=== PATIENT | male | born 1930 | race Caucasian/White ===

== ENCOUNTER 2020-02-25 16:39 | Inpatient (IN) | payer MEDICARE ==
[~2020-02-25] VITALS: Ht 180.3 cm; Wt 80.1 kg
[2020-02-25] MEDS ORDERED: ASPIRIN CHEWABLE 81 MG TABLET. PO ONE (16:45)
--- NOTE | 2020-02-25 16:45 | PHYS DOC ---
Past History Past Medical History: CAD, High Cholesterol, Hyperthyroid Adult General Chief Complaint Chief Complaint: SHORTNESS OF BREATH HPI HPI Patient is a 89-year-old male who presents for shortness of breath. Patient reports this is an acute on chronic issue. Cites worsening dyspnea for past 3 months. Rest makes better, physical activity and exertion and lying flat make worse. Patient denies any pain but reports feelings of inability to take a deep breath. Timing of symptoms has been constant and worsening since onset. Has long history of coronary artery disease, has had x2 stents placed last in 1994. He has been on appropriate medical therapy since taking antihypertensives, 81 mg aspirin daily, and statin daily. Denies any fever, falls, COVID-19 patient con tact, chest pain, ripping or tearing sensation in chest, hemoptysis, abdominal pain, nausea, changes in bladder or bowel function, or recent long distance travel. He is unsure if he has gained any weight since onset 3 months ago, reports trace bilateral edema that he feels is unchanged. Review of Systems Review of Systems Fourteen body systems of review of systems have been reviewed. See HPI for pertinent positives and negative responses, other purvis all other systems are ne gative, non-pertinent or non-contributory Current Medications Current Medications Current Medications Medications (Trade) Dose Ordered Sig/Zenon Start Time Stop Time Status Last Admin Dose Admin Aspirin (Aspirin Chewable) 162 mg 1X ONCE 02/25/20 16:45 02/25/20 16:46 UNV Physical Exam Physical Exam Constitutional: Well developed, well nourished, moderate distress HENT: Normocephalic, atraumatic, bilateral external ears normal, oropharynx moist, no oral exudates, nose normal. Eyes: PERRLA, EOMI, conjunctiva normal, no discharge. Neck: Normal range of motion, no tenderness, supple, no stridor. Cardiovascular: Heart rate regular, sinus rhythm, no murmurs rubs or gallops Lungs & Thorax: Bilateral breath sounds present with diffuse crackles. Rales present in bilateral bases. Moderate respiratory distress, accessory muscle use and neck and upper abdomen noted Abdomen: Bowel sounds normal, soft, no tenderness, no masses, no pulsatile masses. Nonsurgical abdomen, no peritoneal signs Skin: Warm, dry, no erythema, no rash. Back: No tenderness, no CVA tenderness. Extremities: No tenderness, no cyanosis, no clubbing, ROM intact, 1+ pitting edema bilateral lower extremities, left lower extremity approximately 2 cm greater in diameter than right lower extremity, negative Homans' sign bilaterally Neurologic: Alert and oriented X 3, grossly normal motor & sensory function, no focal deficits noted. Psychologic: Affect normal, judgement normal, anxious mood Current Patient Data Vital Signs Vital Signs Date Time Temp Pulse Resp B/P (MAP) Pulse Ox O2 Delivery O2 Flow Rate FiO2 02/25/20 17:39 97.4 78 28 112/72 (85) Room Air Lab Results Laboratory Tests Test 02/25/20 17:00 White Blood Count 8.2 x10^3/uL (4.0-11.0) Red Blood Count 3.69 x10^6/uL (4.30-5.70) Hemoglobin 12.0 g/dL (13.0-17.5) Hematocrit 37.2 % (39.0-53.0) Mean Corpuscular Volume 101 fL (79-100) Mean Corpuscular Hemoglobin 32 pg (25-35) Mean Corpuscular Hemoglobin Concent 32 g/dL (31-37) Red Cell Distribution Width 16.9 % (11.5-14.5) Platelet Count 249 x10^3/uL (140-400) Neutrophils (%) (Auto) 75 % (31-73) Lymphocytes (%) (Auto) 15 % (24-48) Monocytes (%) (Auto) 10 % (0-9) Eosinophils (%) (Auto) 1 % (0-3) Basophils (%) (Auto) 0 % (0-3) Neutrophils # (Auto) 6.1 x10^3uL (1.8-7.7) Lymphocytes # (Auto) 1.2 x10^3/uL (1.0-4.8) Monocytes # (Auto) 0.8 x10^3/uL (0.0-1.1) Eosinophils # (Auto) 0.0 x10^3/uL (0.0-0.7) Basophils # (Auto) 0.0 x10^3/uL (0.0-0.2) Prothrombin Time 11.6 SEC (9.4-11.4) Prothromb Time International Ratio 1.1 (0.9-1.1) Activated Partial Thromboplast Time 24 SEC (23-33) Sodium Level 127 mmol/L (136-145) Potassium Level 4.6 mmol/L (3.5-5.1) Chloride Level 93 mmol/L (98-107) Carbon Dioxide Level 20 mmol/L (21-32) Anion Gap 14 (6-14) Blood Urea Nitrogen 52 mg/dL (8-26) Creatinine 2.3 mg/dL (0.7-1.3) Estimated GFR (Cockcroft-Gault) 27.0 BUN/Creatinine Ratio 23 (6-20) Glucose Level 137 mg/dL (70-99) Lactic Acid Level 4.5 mmol/L (0.4-2.0) Calcium Level 9.2 mg/dL (8.5-10.1) Magnesium Level 2.0 mg/dL (1.8-2.4) Total Bilirubin 0.3 mg/dL (0.2-1.0) Aspartate Amino Transf (AST/SGOT) 91 U/L (15-37) Alanine Aminotransferase (ALT/SGPT) 41 U/L (16-63) Alkaline Phosphatase 115 U/L (46-116) Creatine Kinase 229 U/L (39-308) Troponin I Quantitative 0.066 ng/mL (0-0.055) WN-Fji-Z-Type Natriuretic Peptide 39423 pg/mL (0-449) Total Protein 7.5 g/dL (6.4-8.2) Albumin 3.2 g/dL (3.4-5.0) Albumin/Globulin Ratio 0.7 (1.0-1.7) EKG EKG EKG ordered and interpreted by myself at 1645 hrs. as sinus rhythm at 99 bpm, prolonged AL at 220, prolonged QRS at 124, prolonged QTC at 483, left axis deviation, left bundle branch block with PVCs present, negative Sgarbossa, no STEMI Radiology/Procedures Radiology/Procedures PROCEDURE: PORTABLE CHEST 1V PORTABLE CHEST 1V Clinical History: Reason: shob / Spl. Instructions: / History: Technique: AP view of the chest was obtained at 02/25/2020 4:43 PM. Comparison: None. Findings: The cardiomediastinal silhouette is normal. The pulmonary vessels are slightly cephalized. There is increased reticular opacities of the lungs. There is patchy opacity in the left lung base and is blunting of costophrenic angles. There is an old massive rotator cuff tear on the right. Impression: Mild pleural effusions and interstitial infiltrates could be secondary to CHF or atypical pneumonia. Electronically signed by: Ezequiel Burgess III, MD (02/25/2020 5:27 PM) [facility] Heart Score HEART Score for Chest Pain: HEART Score for Chest Pain Response (Comments) Value History Moderately Suspicious 1 ECG Nonspecific Repolarizatio 1 Age > 65 2 Risk Factors >3 Risk Factors or Hx CAD 2 Troponin < Normal Limit 0 Total 6 Risk Factors: Risk Factors: DM, Current or recent (<one month) smoker, HTN, HLP, family history of CAD, obesity. Risk Scores: Risk Factors: DM, Current or recent (<one month) smoker, HTN, HLP, family history of CAD, obesity. Course & Med Decision Making Course & Med Decision Making Airway patent, in obvious respiratory distress on arrival, IV access obtained and subsequent vitals remarkable for increased work of breathing/tachypneic with RR ~40 History and comprehensive physical exam obtained, subsequent diagnostic work-up ordered. Pertinent Labs and Imaging studies reviewed. (See chart for details). On-call fat pressroom worker at contacted and initial EKG discussed given concern of potential third-degree heart block on monitor, they confirmed patient's EKG was nonconcerning for emergent management at this time Patient presentation most consistent with acute fluid overload, I suspect this is from CHF given gradual increase in dyspnea for past 3 months and absence of any recent sick contacts and/or any constitutional symptoms Patient placed in upright position to support breathing, 120 mg Solu-Medrol and a total of 120 mg Lasix administered with moderate relief in symptomology. BiPAP at bedside but never required as patient saturations maintained greater than 90% on room air, tachypnea improved Nonetheless, patient stabilized but remains in guarded condition. He definitely requires admission into ICU setting. I called Dr. Echeverria, hospitalist at who accepted patient under his care for continued diuresis in ICU setting I updated patient on plan of care and he was amenable. I disclosed all laboratory findings such as elevated creatinine and troponin, I disclosed if invasive indication was eventually required we would transfer him out, he was amenable to this I cannot exclude PE at this time given acute decompensation in past 24 hours. Few risk factors, but physical exam findings of left lower extremity circumference greater than right and overt fluid overload is concerning. D- dimer grossly positive, will pursue VQ scan Patient with full capacity confirmed he is full code. All questions and concerns addressed prior to ER transport to [facility] ICU for continued medical management Critical Care Time This patient required critical care. Due to the fact that the patient required a significant amount of one on one physician - patient contact time, ordering and review of studies, arranging urgent treatment with development of a management plan, evaluation of patients response to treatment with frequent reassessments, and discussions with other providers this patient required critical care time in excess of 30 minutes. Critical care time was indicated due to the inherent instability and/or potential for instability in this patient. The critical care time that is allocated to this patient is above and beyond any time spent on any other billable procedures performed on this patient. Dragon Disclaimer Dragon Disclaimer This electronic medical record was generated, in whole or in part, using a voice recognition dictation system. PERC Rule for PE PERC Rule for PE Response (Comments) Value Age > 50: Yes 1 HR > 100: No 0 Sa02 on room air <95%: No 0 Unilateral leg swelling: Yes 1 Hemoptysis: No 0 Recent surgery or trauma: No 0 Prior PE or DVT: No 0 Hormone use: No 0 Total 2 Departure Departure: Impression: Primary Impression: Acute exacerbation of CHF (congestive heart failure) Additional Impressions: Respiratory distress CAD (coronary artery disease) HTN (hypertension) HLD (hyperlipidemia) Disposition: 09 ADMITTED INPT THIS HOSP ([facility]) Admitting Physician: Kilo Echeverria Condition: GUARDED Referrals: GEN SAGE MD (PCP) Problem Qualifiers MERY OLEARY DO Feb 25, 2020 16:45
--- NOTE | 2020-02-25 16:59 | EKG ---
[address] [address] Test Date: 2020-02-25 Test Time: 16:45:06 Pat Name: NIRALI BELTRE Department: Room: Gender: M Dedenter: NIK : 1930 Requested By: MERY OLEARY Order Number: [id number] Reading MD: Price Carnes Measurements Intervals [place] Rate: 99 P: 19 DC: 220 QRS: 221 QRSD: 124 T: 35 QT: 372 QTc: 483 Interpretive Statements SINUS RHYTHM PROLONGED DC INTERVAL VENTRICULAR BIGEMINY LEFT BUNDLE BRANCH BLOCK Electronically Signed On 03-01-2020 11:34:59 [employer]POSAL [employer]ENT by Price Carnes
[2020-02-25] MEDS ORDERED: FUROSEMIDE 40 MG/4 ML VIAL IVP ONE ×2 (17:15→18:15)
[2020-02-25] MEDS ORDERED: methylPREDNISolone SOD SUCC PF 125 MG/2 ML VIAL. IV ONE (17:15)
[2020-02-25] MEDS ORDERED: FUROSEMIDE 40 MG/4 ML VIAL ONE (17:27)
[2020-02-25] MEDS ORDERED: methylPREDNISolone SOD SUCC PF 125 MG/2 ML VIAL. ONE (17:27)
--- NOTE | 2020-02-25 17:30 | RAD ---
PORTABLE CHEST 1V Clinical History: Reason: shob / Spl. Instructions: / History: Technique: AP view of the chest was obtained at 02/25/2020 4:43 PM. Comparison: None. Findings: The cardiomediastinal silhouette is normal. The pulmonary vessels are slightly cephalized. There is increased reticular opacities of the lungs. There is patchy opacity in the left lung base and is blunting of costophrenic angles. There is an old massive rotator cuff tear on the right. Impression: Mild pleural effusions and interstitial infiltrates could be secondary to CHF or atypical pneumonia. Electronically signed by: Ezequiel Burgess III, MD (02/25/2020 5:27 PM) [facility]
[2020-02-25 17:45] LABS: BASO % 0 % (0-3); EOS % 1 % (0-3); HEMATOCRIT 37.2 % (39.0-53.0); LYMPH # 1.2 x10^3/uL (1.0-4.8); LYMPH % 15 % (24-48); MEAN CORPUSCULAR HEMOGLOBIN 32 pg (25-35); MEAN CORPUSCULAR HGB CONC 32 g/dL (31-37); MEAN CORPUSCULAR VOLUME 101 fL (79-100); MONO # 0.8 x10^3/uL (0.0-1.1); MONO % 10 % (0-9); NEUT # 6.1 x10^3uL (1.8-7.7); NEUT % 75 % (31-73); PLATELET COUNT 249 x10^3/uL (140-400); RED BLOOD COUNT 3.69 x10^6/uL (4.30-5.70); RED CELL DISTRIBUTION WIDTH 16.9 % (11.5-14.5); WHITE BLOOD COUNT 8.2 x10^3/uL (4.0-11.0)
[2020-02-25 17:46] LABS: CALCIUM 9.2 mg/dL (8.5-10.1); CREATININE 2.3 mg/dL (0.7-1.3); POTASSIUM 4.6 mmol/L (3.5-5.1)
[2020-02-25 18:21] LABS: ALBUMIN 3.2 g/dL (3.4-5.0); ALBUMIN/GLOBULIN RATIO 0.7 (1.0-1.7); TOTAL BILIRUBIN 0.3 mg/dL (0.2-1.0); TOTAL PROTEIN 7.5 g/dL (6.4-8.2)
[2020-02-25 19:46] VITALS: BP 103/66
--- NOTE | 2020-02-25 19:46 | NUR ---
Admission Note: Pt transported from ED to ICU room 5, pt moved from cart to bed w/3 person assist, pt put on monitor showing VSS (pt requires 3 liters of oxygen at this time to maintain sats >92%), pt's primary care physician is Dr. Crespo (called Dr. Echeverria and Dr. Crespo to advise, system and orders corrected), home medications entered (need to be ordered, Dr. Crespo aware), pt voiding clear yellow urine via urinal w/o difficulty, pt states he already is feeling better than when he arrived. Repeat troponin and lactic to be drawn. Addendum: 02/25/20 at 2123 by KELLI KULKARNI RN Pt states he wishes to be a DNR, will have dayshift discuss w/Dr. Crespo in am.
[2020-02-25 20:00] VITALS: BP 105/70
[2020-02-25] MEDS ORDERED: GLUC-46 PO (20:03)
[2020-02-25] MEDS ORDERED: MECO10005 PO (20:03)
[2020-02-25] MEDS ORDERED: ASPI-630 PO (20:03)
[2020-02-25] MEDS ORDERED: CALC-495 PO (20:03)
[2020-02-25] MEDS ORDERED: EZET10TA20 PO (20:03)
[2020-02-25] MEDS ORDERED: UBID100T5 PO (20:03)
[2020-02-25] MEDS ORDERED: ATOR20TA58 PO (20:03)
[2020-02-25] MEDS ORDERED: VIT1TABL32 PO (20:03)
[2020-02-25] MEDS ORDERED: VITA1TAB19 PO (20:03)
--- NOTE | 2020-02-25 20:37 | RAD ---
Ventilation perfusion exam History:Dyspnea Comparison: None Technique: Perfusion images only. Perfusion images were acquired after the patient was injected with 5.5 mCi of technetium 99m MAA. FINDINGS: There is moderate heterogeneity of radiotracer on perfusion images. Impression: There is intermediate probability for pulmonary embolic disease. Electronically signed by: Arnulfo Castro MD (02/25/2020 8:34 PM) [facility]
[2020-02-25 21:00] VITALS: BP 102/72
[2020-02-25 22:00] VITALS: BP 108/75
[2020-02-25 23:00] VITALS: BP 114/85
[2020-02-25 23:59] VITALS: BP 118/87
[2020-02-26] VITALS (23 sets, daily range): BP systolic 79–103; BP diastolic 42–78
--- NOTE | 2020-02-26 05:39 | NUR ---
Cardiology consult called to answering service.
--- NOTE | 2020-02-26 06:09 | NUR ---
Shift Note: Pt is a/o x4, VSS (pt requires 2 liters oxygen to maintain sats >92%), pt voiding clear yellow urine, bilateral LE weakness noted (advised pt he is a fall risk and to call for assistance (pt agreed), called Dr. Crespo this am to advise of pulmonary perfusion study results (orders received for lovenox) also notified him the pt wishes to be a DNR (order entered), home medications entered (need to be reconciled).
--- NOTE | 2020-02-26 08:37 | NUR ---
IP: patient PUI for COVID-19, requires contact and airborne precautions.
[2020-02-26] MEDS: ENOXAPARIN ** NOTE DOSE ** SYRINGE SQ SCH (10:57)
--- NOTE | 2020-02-26 11:00 | NUR ---
Zak initiated transfer to [facility], ([place]) for cardiology and pt regular traveling electrician Dr Olga Romero. [facility] will not have a bed for patient until possibly Saturday. [address] Romero office spoke with Dr Suraj Ugalde, RN. Juan will speak with Dr. Chan (county coroner) to explore other possible options. Called Natalie to inform her [facility] bed situation, and that nurse is awaiting a call back from Dr Chan. 1515 Natalie called and wanted to check for a bed at . Spoke with Zak, he will call transfer center. 1600 Dr Chan returned call, wants this nurse to call transfer center and check on beds at either [facility] south or east. Suggested starting pt on low dose Dobutamine and give another dose of lasix. This nurse called transfer center and confirmed pt on waiting list, and there is zero beds at either south or east. [address] Altman to discuss Dr Chan suggestions.
--- NOTE | 2020-02-26 13:29 | HP ---
ADMIT DATE: 02/25/2020 HISTORY OF PRESENT ILLNESS: This is an 89-year-old male who has a long history of multiple cardiac problems, who came in with shortness of breath over the last several weeks. He has been seen by his retort fireman, Dr. Olga Romero at [facility] and had been planning on a heart catheterization in about 4-5 days. The patient denies any chest pain per se and increased dyspnea with just minimal exertion and marked orthopnea. The patient came in through the Emergency Room. He was found to be in congestive heart failure. The patient was admitted for further evaluation and treatment of such and possible transfer down to [facility] on the [place] with his retort fireman, Dr. Romero, but in the meantime, the patient will be seen by Cardiology here if not transferred before. The patient denies any fever, chills, loss of taste, any contact with anybody with COVID-19, just basically lives with his . 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 PAST SURGICAL HISTORY: Surgeries include that of appendectomy, arthroplasty, total knee, right, colonoscopy in 2015, coronary angioplasty with stent placement x 2, RCA, on 10/04/1994 at [facility], eye surgery for retinal detachment, repair of knee surgery, revision of total knee replacement and all components, revision of total knee arthroplasty, all components by Dr. Arndt, total knee, bilateral, ultrasound-guided needle aspiration. MEDICATIONS: Include Tylenol, aspirin 81, Lipitor 20, calcium carbonate, coenzyme Q10, B12, Zetia, glucosamine, omega-3. FAMILY HISTORY: Father with heart attack and a sister's son and brother, basically unremarkable. Mother had a brain aneurysm and at 80. SOCIAL HISTORY: The patient is a former smoker, had a [id number]-zzbd history, but has quit more than 20 years ago. No chewing tobacco. Alcohol, very few if any, 4-5 per week. Otherwise unremarkable. ALLERGIES: No known drug allergies. REVIEW OF SYSTEMS: As noted, just increased shortness of breath, dyspnea with marked orthopnea, no chest pain, no nausea, vomiting, melena, hematochezia or hematemesis. No headaches, visual changes, blurred vision, double vision. No neurological deficits noted. No problem with bowels or bladder at this time. PHYSICAL EXAMINATION: GENERAL: This is a very pleasant white gentleman, looking stated age, looking fairly ill. VITAL SIGNS: Blood pressure approximately 85/58, respiratory rate 22, pulse 95, afebrile. He is on 2 liters at 95%. HEENT: The patient's head was atraumatic, normocephalic. Eyes: PERRLA without jaundice. Mouth and throat were normal. NECK: Supple. LUNGS: Show rhonchi and rales bilaterally. CARDIOVASCULAR: Regular sinus rhythm, S1, S2 with a 2/6 systolic ejection murmur. ABDOMEN: Soft, nontender, no rebound or guarding. Positive bowel sounds, no hepatosplenomegaly was noted. EXTREMITIES: No clubbing, cyanosis, nor edema. NEUROLOGIC: The patient was alert and oriented x 3. LABORATORY DATA: White count 8, hemoglobin 12, hematocrit 37. Most telling was his BNP of 38,000. Sodium 127, potassium 4.6. BUN and creatinine 52 and 2.3, GFR 27. Blood sugar 137. Lactic acid was elevated initially, but went from 4.5 down to 1.9, troponin 0.06 basically x 3. Positive D-dimer. V/Q scan shows intermediate probability for possible pulmonary embolism; however, the patient being that he has such significant heart failure may be a false positive there. The patient, however, has been started on Lovenox and continued to be monitored. IMPRESSION: Acute on top of chronic diastolic heart failure, history of coronary artery disease with stent placement, nonischemic cardiomyopathy, moderate aortic and moderate mitral valve stenosis, left bundle-branch block, history of myocardial infarction, history of stent placement, cardiomyopathy, severe hearing loss, general lethargy, chronic kidney disease stage 3A, anemia of chronic disease, elevated troponins, elevated D-dimer of 8.53. PLAN: The patient continued to be monitored here in the ICU and we will attempt to make arrangements for his transfer to [facility], Dr. Romero, for further evaluation and treatment, but will be seen here by Cardiology until we can establish a transfer. GEN SAGE MD DR: RHINA/shar JOB#: [id number] / [id number]
[2020-02-26] MEDS ORDERED: DIGOXIN IV 500 MCG/2 ML AMPUL. IV ONE ×2 (18:30→20:45)
[2020-02-26] MEDS: ATORVASTATIN CALCIUM 20 MG TABLET PO SCH (19:35)
[2020-02-27] VITALS (24 sets, daily range): BP systolic 83–118; BP diastolic 43–79
--- NOTE | 2020-02-27 06:28 | NUR ---
Pt slept well through the night, awake this am and states he is feeling better. Pts urine output has improved, see I&O's. Pt has been in and out of Afib, with periods of SR with BBB. Rate has improved since IV Digoxin last HS, currently in 70's. See frequent vitals. Pts Left AC IV infiltrated last HS and IV was removed at that time. Site has been red and swollen since. ICE pack applied intermittently throughout the night. Pt states it feels better this am. Pt am weight down 80.3 Kg. Pt remains on Dobutamine gtt at 3mcg/kg/min in Right AC IV. [facility] Transfer team called this am for an update and states he is still on a waiting list for transfer.
[2020-02-27 06:39] LABS: BASO % 0 % (0-3); EOS % 0 % (0-3); HEMOGLOBIN 10.5 g/dL (13.0-17.5); LYMPH # 0.9 x10^3/uL (1.0-4.8); LYMPH % 9 % (24-48); MEAN CORPUSCULAR HEMOGLOBIN 32 pg (25-35); MEAN CORPUSCULAR HGB CONC 33 g/dL (31-37); MEAN CORPUSCULAR VOLUME 98 fL (79-100); MONO % 10 % (0-9); NEUT # 8.2 x10^3uL (1.8-7.7); NEUT % 81 % (31-73); PLATELET COUNT 207 x10^3/uL (140-400); RED BLOOD COUNT 3.28 x10^6/uL (4.30-5.70); RED CELL DISTRIBUTION WIDTH 16.4 % (11.5-14.5); WHITE BLOOD COUNT 10.1 x10^3/uL (4.0-11.0)
[2020-02-27 06:50] LABS: CALCIUM 8.6 mg/dL (8.5-10.1); CREATININE 2.4 mg/dL (0.7-1.3); GFR 25.7; POTASSIUM 4.1 mmol/L (3.5-5.1)
--- NOTE | 2020-02-27 07:00 | NUR ---
UPON ASSESSMENT PT WAS ON 3 MCG OF DOBUTAMINE, RESTING COMFORTABLE.
[2020-02-27] MEDS: GLUCOSAMINE/CHOND 500/400MG CAPSULE PO SCH (10:37)
[2020-02-27] MEDS: CALCIUM CARB/VIT D3 500/200 TABLET PO SCH (10:39)
[2020-02-27] MEDS: CYANOCOBALAMIN (VITAMIN B-12) 1,000 MCG TABLET. PO SCH (10:39)
[2020-02-27] MEDS: VITAMIN B COMPLEX CAPSULE. PO SCH (10:39)
[2020-02-27] MEDS: UBIDECARENONE 50 MG CAPSULE. PO SCH (10:40)
[2020-02-27] MEDS: ASPIRIN CHEWABLE 81 MG TABLET. PO SCH (10:40)
[2020-02-27] MEDS: EZETIMIBE 10 MG TABLET PO SCH (10:40)
[2020-02-27] MEDS: ENOXAPARIN ** NOTE DOSE ** SYRINGE SQ SCH (10:41)
[2020-02-27] MEDS ORDERED: FUROSEMIDE 20 MG/2 ML VIAL IVP ONE (12:00)
[2020-02-27] MEDS ORDERED: AZITHROMYCIN 250 MG TABLET. PO ONE (12:15)
--- NOTE | 2020-02-27 13:25 | NUR ---
when making hourly rounds, it was noted that pt had pulled out his IV. pt states "I dont know how that happened." pharmacy notified due to the risks of necrotic tissue. pharmacy states that the pt should be ok and does not need nitro paste at the site at this time. the iv did not infiltrate, it was just pulled out via patient. Will ctm the site. Dr. Crespo notified of the risks of infusion without central line access and orders obtained. this nurse called ER doc to come up and try to insert central line. will ctm.
--- NOTE | 2020-02-27 15:10 | NUR ---
PT'S DOBUTAMINE RATE IS NOW INCREASED AT 5 MCG. PER PROTOCOL THE RATE SHOULD BE INCREASED IN BY 2 INCREMENTS. BUT WAS NOT AND LEFT AT 3 MCG AND NOW INCREASED TO 5 MCG. WILL CTM.
--- NOTE | 2020-02-27 15:47 | PDOC2 ---
CONSULT DOS: DATE: 02/27/20 TIME: 15:37 Reason for Consult: Heart failure Referring Physician: Dr. Rodriguez Chief Complaint Shortness of breath Source: Chart review, Patient Problem List Problems Medical Problems: (1) Acute exacerbation of CHF (congestive heart failure) Status: Acute (2) CAD (coronary artery disease) Status: Acute (3) HLD (hyperlipidemia) Status: Acute (4) HTN (hypertension) Status: Acute (5) Respiratory distress Status: Acute History of Present Illness The patient is an 89-year-old male who was admitted on 02/25/2024 increasing shortness of breath. This had been a prolonged problem but has gradually increased. The patient's initial evaluation showed a chest x-ray with mild interstitial infiltrates, an EKG that showed no acute ischemic changes and initial troponin normal at 0.060. Creatinine was 2.4 and his D-dimer was elevated at 8.53. The patient was initially treated with diuresis and a VQ scan showed an intermittent probability for PE. He was treated with Lovenox 80 mg subcu every 24 hours. Overnight the patient has been feeling better. He denies chest pain. He reports improved shortness of breath. He has a long-term history of cardiac disease including previous stenting and probable heart piero lure. He has been followed at [facility] and by report was scheduled for a heart catheterization there on March 02. Initial attempts upon the patient's admission for transfer to [facility] were unsuccessful. However one of the wellness educator at [facility] was contacted by the nursing service. As per her record his recommendations the patient was started on dobutamine. Cardiovascular: CAD, CHF, HTN, mitral valve stenosis, aortic stenosis Pulmonary: COPD Renal/: Chronic renal insuff Past Surgical History: Appendectomy, Total knee replacement, Other (Coronary stenting.) Family History: Coronary Artery Disease, Hypertension Smoke: No ALCOHOL: rare Current Medications Current Medications Aspirin (Aspirin Chewable) 162 mg 1X ONCE PO Last administered on 02/25/20at 17:31; Start 02/25/20 at 16:45; Stop 02/25/20 at 17:27; Status DC Furosemide (Lasix) 40 mg 1X ONCE IVP ; Start 02/25/20 at 17:15; Stop 02/25/20 at 17:27; Status DC Methylprednisolone Sodium Succinate (SOLU-Medrol 125MG VIAL) 125 mg 1X ONCE IV Last administered on 02/25/20at 17:31; Start 02/25/20 at 17:15; Stop 02/25/20 at 17:27; Status DC Furosemide (Lasix) 40 mg STK-MED ONCE .ROUTE ; Start 02/25/20 at 17:27; Stop 02/25/20 at 17:27; Status DC Methylprednisolone Sodium Succinate (SOLU-Medrol 125MG VIAL) 125 mg STK-MED ONCE .ROUTE ; Start 02/25/20 at 17:27; Stop 02/25/20 at 17:27; Status DC Furosemide (Lasix) 80 mg 1X ONCE IVP Last administered on 02/25/20at 18:55; Start 02/25/20 at 18:15; Stop 02/25/20 at 18:26; Status DC Enoxaparin Sodium (Lovenox 80mg Syringe) 80 mg Q24H SQ Last administered on 02/27/20at 10:41; Start 02/26/20 at 09:00 Aspirin (Aspirin Chewable) 81 mg DAILY PO Last administered on 02/27/20at 10:40; Start 02/27/20 at 09:00 Atorvastatin Calcium (Lipitor) 20 mg QHS PO Last administered on 02/26/20at 19:35; Start 02/26/20 at 21:00 EZETIMIBE (Zetia) 10 mg DAILY PO Last administered on 02/27/20at 10:40; Start 02/27/20 at 09:00 Calcium/Vitamin D (Oscal D 500mg/ 200uts) 1 tab DAILY PO Last administered on 02/27/20at 10:39; Start 02/27/20 at 09:00 Glucosamine/ Chondroitin (Glucosamine-Chondroitin 500/400mg) 2 cap DAILY PO Last administered on 02/27/20at 10:37; Start 02/27/20 at 09:00 Cyanocobalamin (Vitamin B-12) 1,000 mcg DAILY PO Last administered on 02/27/20at 10:39; Start 02/27/20 at 09:00 Coenzyme Q10 (Coenzyme Q10) 200 mg DAILY PO Last administered on 02/27/20at 10:40; Start 02/27/20 at 09:00 Vitamin B Complex (Vitamin B Complex) 1 cap DAILY PO Last administered on 02/27/20at 10:39; Start 02/27/20 at 09:00 Dobutamine HCl/ Dextrose 250 ml @ 5.01 mls/hr CONT PRN IV SEE I/O RECORD Last administered on 02/26/20at 16:51; Start 02/26/20 at 16:30 Digoxin (Lanoxin) 250 mcg 1X ONCE IV Last administered on 02/26/20at 19:34; Start 02/26/20 at 18:30; Stop 02/26/20 at 18:45; Status DC Digoxin (Lanoxin) 250 mcg 1X ONCE IV Last administered on 02/26/20at 21:45; Start 02/26/20 at 20:45; Stop 02/26/20 at 20:46; Status DC Furosemide (Lasix) 20 mg 1X ONCE IVP Last administered on 02/27/20at 13:23; Start 02/27/20 at 12:00; Stop 02/27/20 at 12:03; Status DC Azithromycin (Zithromax) 500 mg 1X ONCE PO Last administered on 02/27/20at 13:22; Start 02/27/20 at 12:15; Stop 02/27/20 at 12:16; Status DC Azithromycin (Zithromax) 250 mg Q24H PO ; Start 02/28/20 at 12:15 Active Scripts Active Reported Coenzyme Q10 (Ubidecarenone) 100 Mg Tablet 200 Mg PO DAILY Calcium 600 + Vit D 800 Tab (Calcium Carbonate/Vitamin D3) 1 Each Tablet 1 Each PO DAILY Cosamin Ds Tablet (Glucosamine/Chondro Winchester A) 1 Each Tablet 2 Each PO DIALY B Complex (Vitamin B Complex) 1 Each Tablet 1 Each PO DAILY B12 Active (Mecobalamin) 1,000 Mcg Tab.chew 1,000 Mcg PO DAILY Ocuvite Tablet (Vit A,C & E/Lutein/Minerals) 1 Each Tablet 2 Each PO DAILY Aspirin 81 Mg Tab.chew 81 Mg PO DAILY Zetia (Ezetimibe) 10 Mg Tablet 10 Mg PO DAILY Atorvastatin Calcium 20 Mg Tablet 20 Mg PO QHS Allergies: Coded Allergies: No Known Drug Allergies (Unverified , 02/25/20) General: YES: Fatigue Respiratory: YES: Shortness of breath, SOB with excertion General: mild distress HEENT: Atraumatic Lungs: Other (Decreased breath sounds) Heart: Regular rate Abdomen: Normal bowel sounds VITALS Vital Signs Date Time Temp Pulse Resp B/P (MAP) Pulse Ox O2 Delivery O2 Flow Rate FiO2 02/27/20 15:11 98.3 77 18 84/57 (66) 96 Room Air 02/27/20 12:00 2.0 Labs Laboratory Tests Test 02/25/20 17:00 02/25/20 20:50 02/26/20 01:00 02/27/20 06:15 White Blood Count 8.2 x10^3/uL (4.0-11.0) 10.1 x10^3/uL (4.0-11.0) Red Blood Count 3.69 x10^6/uL (4.30-5.70) 3.28 x10^6/uL (4.30-5.70) Hemoglobin 12.0 g/dL (13.0-17.5) 10.5 g/dL (13.0-17.5) Hematocrit 37.2 % (39.0-53.0) 32.0 % (39.0-53.0) Mean Corpuscular Volume 101 fL (79-100) 98 fL (79-100) Mean Corpuscular Hemoglobin 32 pg (25-35) 32 pg (25-35) Mean Corpuscular Hemoglobin Concent 32 g/dL (31-37) 33 g/dL (31-37) Red Cell Distribution Width 16.9 % (11.5-14.5) 16.4 % (11.5-14.5) Platelet Count 249 x10^3/uL (140-400) 207 x10^3/uL (140-400) Neutrophils (%) (Auto) 75 % (31-73) 81 % (31-73) Lymphocytes (%) (Auto) 15 % (24-48) 9 % (24-48) Monocytes (%) (Auto) 10 % (0-9) 10 % (0-9) Eosinophils (%) (Auto) 1 % (0-3) 0 % (0-3) Basophils (%) (Auto) 0 % (0-3) 0 % (0-3) Neutrophils # (Auto) 6.1 x10^3uL (1.8-7.7) 8.2 x10^3uL (1.8-7.7) Lymphocytes # (Auto) 1.2 x10^3/uL (1.0-4.8) 0.9 x10^3/uL (1.0-4.8) Monocytes # (Auto) 0.8 x10^3/uL (0.0-1.1) 1.0 x10^3/uL (0.0-1.1) Eosinophils # (Auto) 0.0 x10^3/uL (0.0-0.7) 0.0 x10^3/uL (0.0-0.7) Basophils # (Auto) 0.0 x10^3/uL (0.0-0.2) 0.0 x10^3/uL (0.0-0.2) Prothrombin Time 11.6 SEC (9.4-11.4) Prothromb Time International Ratio 1.1 (0.9-1.1) Activated Partial Thromboplast Time 24 SEC (23-33) D-Dimer (Bailey) 8.53 mg/L (0.00-0.50) Sodium Level 127 mmol/L (136-145) 133 mmol/L (136-145) Potassium Level 4.6 mmol/L (3.5-5.1) 4.1 mmol/L (3.5-5.1) Chloride Level 93 mmol/L (98-107) 98 mmol/L (98-107) Carbon Dioxide Level 20 mmol/L (21-32) 23 mmol/L (21-32) Anion Gap 14 (6-14) 12 (6-14) Blood Urea Nitrogen 52 mg/dL (8-26) 70 mg/dL (8-26) Creatinine 2.3 mg/dL (0.7-1.3) 2.4 mg/dL (0.7-1.3) Estimated GFR (Cockcroft-Gault) 27.0 25.7 BUN/Creatinine Ratio 23 (6-20) Glucose Level 137 mg/dL (70-99) 90 mg/dL (70-99) Lactic Acid Level 4.5 mmol/L (0.4-2.0) 1.9 mmol/L (0.4-2.0) Calcium Level 9.2 mg/dL (8.5-10.1) 8.6 mg/dL (8.5-10.1) Magnesium Level 2.0 mg/dL (1.8-2.4) Total Bilirubin 0.3 mg/dL (0.2-1.0) Aspartate Amino Transf (AST/SGOT) 91 U/L (15-37) Alanine Aminotransferase (ALT/SGPT) 41 U/L (16-63) Alkaline Phosphatase 115 U/L (46-116) Creatine Kinase 229 U/L (39-308) Troponin I Quantitative 0.066 ng/mL (0-0.055) 0.060 ng/mL (0-0.055) 0.057 ng/mL (0-0.055) MM-Wzn-Y-Type Natriuretic Peptide 79239 pg/mL (0-449) Total Protein 7.5 g/dL (6.4-8.2) Albumin 3.2 g/dL (3.4-5.0) Albumin/Globulin Ratio 0.7 (1.0-1.7) Images Chest x-ray with mild interstitial infiltrates. VQ scan with intermittent probability for pulmonary embolism. Assessment/Plan 1. Acute on chronic probable systolic heart failure. Patient improved post d iuresis. No significant elevation in troponin. History of multiple cardiac problems. At present time we will continue diuresis with monitoring of lab. As noted above patient has been scheduled for a heart catheterization March [address] [facility]. Will transfer to [facility] when able. Continue to monitor lab. 2. History of coronary disease as previous stenting. Patient denies chest pain. No significant elevation in troponin. Continue baseline medications. 3. Elevated D-dimer at 8.53. VQ scan was intermittent probability for PE. Has been placed on Lovenox 80 mg subcu every 24 hours by the primary service. 4. Reported moderate aortic stenosis and mitral stenosis. Continuing present treatments. Follow-up at [facility] post transfer. 5. Chronic kidney disease. Craning of 2.4. We will continue to monitor. Thank you for allowing us to participate in the care of your patient. BARBY VIVAR MD Feb 27, 2020 15:47
--- NOTE | 2020-02-27 16:30 | NUR ---
this nurse talked to nursing auditor supervisor, Elyse and pharmacy and it was agreed upon that pt would get PICC line placed due to the drip. Pt agrees and will ctm as needed. frame assembler picc line nurse paged.
[2020-02-27] MEDS: ATORVASTATIN CALCIUM 20 MG TABLET PO SCH (20:09)
--- NOTE | 2020-02-27 22:00 | NUR ---
Order Verified Yes Consent signed Yes Previous PICC placement No Past Medical/Surgical history and current diagnosis reviewed No Patient Medical /Surgical History Related to PICC line placement None Special considerations for PICC line placement None PICC placement indication Dobutamine and poor peripheral access Name of PICC Nurse Keri Sesay RN
--- NOTE | 2020-02-27 22:02 | NUR ---
Procedure: Following complete explanation of the PICC procedure including the indications, risks, and potential complications, informed consent was obtained. The possibility for infection was discussed along with signs, symptoms, and prevention. All the patients questions were answered. IV Device Protocol was used. Written and verbal patient education was provided. Hand hygiene performed. Standardized central line checklist was utilized. The patient was placed in the supine position, the arm was prepped with chlorhexidine and patient draped with maximum sterile barrier. 1 mL 1% lidocaine was infiltrated into the skin to provide local anesthesia. A thorough assessment of the right upper extremity completed. Using real-time ultrasound guidance and standardized micro puncture set, the right basilic vein was punctured and a peel away sheath was placed using the modified Seldinger technique. A tip location device was used to ensure adequate catheter placement. The catheter was secured using a securement device and an antimicrobial patch was applied directly on the insertion site followed by a transparent dressing. All ports withdrew blood and flushed without resistance. Patient tolerated the procedure without apparent complication. A dual Lumen Power PICC placement successful and uncomplicated. Placement verified by EKG tip confirmation system. Green p wave and ekg observed on 3CG system. Tip located in the low SVC per 3CG Complications: None
[2020-02-28] VITALS (12 sets, daily range): BP systolic 93–106; BP diastolic 51–72
[2020-02-28] MEDS ORDERED: DIGOXIN IV 500 MCG/2 ML AMPUL. IV ONE (01:15)
--- NOTE | 2020-02-28 06:23 | NUR ---
Shift Note: pt a/ox4, VSS at this time (dobutamine infusing at 5mcg and one dose of digoxin given as ordered for elevated HR), pt continues to be incontinent of urine (utilizes urinal constantly per pt preference), SANDEE double lumen PICC line placed last evening, [facility] transfer team called this am for an update (they are hoping to have discharges today and be able to transfer the pt)
[2020-02-28 07:11] LABS: BASO % 0 % (0-3); EOS # 0.1 x10^3/uL (0.0-0.7); EOS % 2 % (0-3); HEMATOCRIT 33.3 % (39.0-53.0); LYMPH # 0.7 x10^3/uL (1.0-4.8); LYMPH % 10 % (24-48); MEAN CORPUSCULAR HEMOGLOBIN 32 pg (25-35); MEAN CORPUSCULAR HGB CONC 33 g/dL (31-37); MEAN CORPUSCULAR VOLUME 97 fL (79-100); MONO # 0.6 x10^3/uL (0.0-1.1); MONO % 10 % (0-9); NEUT # 4.9 x10^3uL (1.8-7.7); NEUT % 78 % (31-73); PLATELET COUNT 200 x10^3/uL (140-400); RED BLOOD COUNT 3.43 x10^6/uL (4.30-5.70); RED CELL DISTRIBUTION WIDTH 16.2 % (11.5-14.5); WHITE BLOOD COUNT 6.3 x10^3/uL (4.0-11.0)
[2020-02-28 07:19] LABS: CALCIUM 8.9 mg/dL (8.5-10.1); CREATININE 2.1 mg/dL (0.7-1.3); POTASSIUM 3.7 mmol/L (3.5-5.1)
--- NOTE | 2020-02-28 07:40 | PN ---
DATE: SUBJECTIVE: An 89-year-old gentleman, came in with acute on top of chronic congestive heart failure, history of coronary artery disease. The patient says he is feeling much better today. He was also very hypotensive. He was placed on a dobutamine drip in the ICU. OBJECTIVE: VITAL SIGNS: His blood pressure has vacillated in the low 100s to approximately 98/60, respiratory rate 18, ____ 80 and afebrile. GENERAL: The patient is much more alert, has good color to his face. LUNGS: The patient's lungs still show diminished breath sounds in the bases. CARDIOVASCULAR: Regular sinus rhythm with possibly 1-2/6 systolic ejection murmur with his history of mitral and aortic stenosis. ABDOMEN: Soft and nontender. EXTREMITIES: No clubbing, cyanosis, or edema. IMPRESSION: Therefore, acute on top of chronic diastolic heart failure, hypotension, anemia of chronic disease, elevated troponins probably secondary to his heart failure. In any case, he will be seen by Dr. Altman, noted supervisory lifeguard and make further adjustments accordingly to his consultation. GEN SAGE MD DR: RHINA/shar JOB#: [id number] / [id number]
[2020-02-28] MEDS: VITAMIN B COMPLEX CAPSULE. PO SCH (09:02)
[2020-02-28] MEDS: EZETIMIBE 10 MG TABLET PO SCH (09:02)
[2020-02-28] MEDS: UBIDECARENONE 50 MG CAPSULE. PO SCH (09:02)
[2020-02-28] MEDS: CALCIUM CARB/VIT D3 500/200 TABLET PO SCH (09:02)
[2020-02-28] MEDS: ASPIRIN CHEWABLE 81 MG TABLET. PO SCH (09:03)
[2020-02-28] MEDS: CYANOCOBALAMIN (VITAMIN B-12) 1,000 MCG TABLET. PO SCH (09:03)
[2020-02-28] MEDS: GLUCOSAMINE/CHOND 500/400MG CAPSULE PO SCH (09:03)
[2020-02-28] MEDS: ENOXAPARIN ** NOTE DOSE ** SYRINGE SQ SCH (09:03)
--- NOTE | 2020-02-28 11:18 | NUR ---
EMS ARRIVED TO TAKE PATIENT TO [facility] [address], REPORT WAS CALLED TO GALILEA AT [facility], AND THE ELECTRIC LIFT TRUCK DRIVER WITH EMS. PT STILL HAS DOBUTAMINE RUNNING AT 5 ML/HR AND PICC LINE IN THE R UPPER ARM. TRANSFER OF CARE. PT WAS SENT WITH BELONGINGS.
[2020-02-28] MEDS ORDERED: AZITHROMYCIN 250 MG TABLET. PO SCH (12:15)
--- NOTE | 2020-03-03 10:08 | DS ---
DATE OF DISCHARGE: 02/28/2020 HOSPITAL COURSE: An 89-year-old gentleman came in with heart failure, apparently been seen by his lactation nurse, Dr. Romero from [facility] 4 days earlier and he planned a heart catheterization because of increased minimal exertion dyspnea. The patient was brought in, could not get an initial transfer at first and so was admitted and placed on IV Lasix gently. His sodium was 127. His blood pressure dropped and as a result of that we were in a situation of having place him on a dobutamine drip as his blood pressure remained in the systolic low 90s at best and at times dropped down as low as 82/50, so he was placed on a dobutamine drip. Dr. Altman was kind enough to review the patient and agreed with the therapy and along with the dobutamine and gentle IV Lasix, he did make improvement; however, still obviously needed further testing. He had a V/Q scan, positive D-dimer, which the V/Q was negative. The patient had chronic renal failure and will be continued to be monitored. Chest x-ray showed a mild pleural effusions and interstitial infiltrates, could be secondary to congestive heart failure or atypical pneumonia. The troponins were slightly elevated at 0.06. In any case, the patient otherwise made good progress for the situation and will be transferred down to [facility] for further evaluation by his lactation nurse, Dr. Olga Romero down there. IMPRESSION: Acute exacerbation of congestive heart failure, coronary artery disease, hyperlipidemia, hypertension, respiratory distress, hypotension requiring dobutamine drip, anemia of chronic disease, chronic kidney disease stage 3, elevated D-dimer 8.53, coronavirus negative. The patient was transferred via EMS to [facility] on the , continuing on a dobutamine drip. GEN SAGE MD DR: RHINA/shar JOB#: [id number] / [id number]
== END 2020-02-28 11:18 | disposition short-term general hospital (02) | DRG 291 ==
LOC: ER 16:39 → ICU 18:04
PROVIDERS: ADMIT Family Medicine; ATTEND Family Medicine
DX: I13.0 Hypertensive heart and chronic kidney disease with heart failure and stage 1 through stage 4 chronic kidney disease, or unspecified chronic kidney disease (principal); I50.43 Acute on chronic combined systolic (congestive) and diastolic (congestive) heart failure; I42.8 Other cardiomyopathies; D63.8 Anemia in other chronic diseases classified elsewhere; E78.00 Pure hypercholesterolemia, unspecified; E78.5 Hyperlipidemia, unspecified; H54.7 Unspecified visual loss; H91.90 Unspecified hearing loss, unspecified ear; I08.0 Rheumatic disorders of both mitral and aortic valves; I25.10 Atherosclerotic heart disease of native coronary artery without angina pectoris; I25.2 Old myocardial infarction; J44.9 Chronic obstructive pulmonary disease, unspecified; N18.31 Chronic kidney disease, stage 3a; N40.0 Benign prostatic hyperplasia without lower urinary tract symptoms; Z79.82 Long term (current) use of aspirin; Z82.49 Family history of ischemic heart disease and other diseases of the circulatory system; Z85.828 Personal history of other malignant neoplasm of skin; Z87.891 Personal history of nicotine dependence; Z95.5 Presence of coronary angioplasty implant and graft; Z96.659 Presence of unspecified artificial knee joint; Z20.828 Contact with and (suspected) exposure to other viral communicable diseases; E05.90 Thyrotoxicosis, unspecified without thyrotoxic crisis or storm
CPT/HCPCS: 36415; 36569; 71045; 78580; 80048; 80053; 82550; 83605; 83735; 83880; 84484; 85025; 85379; 85610; 85730; 87040; 93005; 96374; 96375; A9540; J0456; J1160; J1250; J1650; J1940; J2930; U0003; 99285-25

== ENCOUNTER 2020-06-03 20:21 | Emergency (ER) | payer MEDICARE ==
[~2020-06-03] VITALS: Ht 180.3 cm; Wt 82.6 kg
[~2020-06-03 20:21] MED LIST: ASPI-630 PO; ATOR20TA58 PO; CALC-495 PO; EZET10TA20 PO; GLUC-46 PO; MECO10005 PO; UBID100T5 PO; VIT1TABL32 PO; VITA1TAB19 PO
[2020-06-03 20:58] LABS: BASO # 0.1 x10^3/uL (0.0-0.2); BASO % 1 % (0-3); EOS % 0 % (0-3); HEMATOCRIT 35.7 % (39.0-53.0); HEMOGLOBIN 11.8 g/dL (13.0-17.5); LYMPH # 0.9 x10^3/uL (1.0-4.8); LYMPH % 10 % (24-48); MEAN CORPUSCULAR HEMOGLOBIN 32 pg (25-35); MEAN CORPUSCULAR HGB CONC 33 g/dL (31-37); MEAN CORPUSCULAR VOLUME 96 fL (79-100); MONO # 0.4 x10^3/uL (0.0-1.1); MONO % 4 % (0-9); NEUT # 8.2 x10^3uL (1.8-7.7); NEUT % 85 % (31-73); PLATELET COUNT 172 x10^3/uL (140-400); RED CELL DISTRIBUTION WIDTH 15.5 % (11.5-14.5); WHITE BLOOD COUNT 9.7 x10^3/uL (4.0-11.0)
[2020-06-03 21:05] LABS: CALCIUM 9.2 mg/dL (8.5-10.1); CREATININE 1.6 mg/dL (0.7-1.3); GFR 41.1; POTASSIUM 4.5 mmol/L (3.5-5.1)
--- NOTE | 2020-06-03 21:10 | PHYS DOC ---
Past History Past Medical History: CAD, High Cholesterol, Hyperthyroid Past Surgical History: No Surgical History, Other Additional Past Surgical Histo: HEART VALVE REPLACEMENT Alcohol Use: None Adult General Chief Complaint Chief Complaint: MECHANICAL FALL HPI HPI Patient is an 89-year-old male with a past medical history significant for CAD, status post cardiac valve replacement 3 months ago, on aspirin, hypertension, hyperlipidemia and hyperthyroidism who presents to the emergency department with a chief complaint of dizziness and fall. States he was at home approximately 2 hours before coming to the emergency department, and began to walk up a flight of stairs. States that about the third or fourth stair he got lightheaded/dizzy and fell backwards down the stairs. States he actually hit the back of his head on a door frame on the way down which caused a small laceration. States he did not lose consciousness, have any changes in vision or have any nausea or vomiting since then. States he also has pain in his low back and left hip, 6 out of 10, dull and achy in nature. States he has mild pain in his head and neck generally about 2 out of 10, dull and achy in nature. Denies any numbness/weakness/tingling, paralysis, slurred speech or facial droop. Denies any chest pain, shortness of breath, abdominal pain, dysuria, hematuria or any history of hematemesis/hemoptysis, hematochezia/melena. Review of Systems Review of Systems Review of systems otherwise unremarkable except for noted in HPI Allergies Allergies Allergies Coded Allergies Type Severity Reaction Last Updated Verified No Known Drug Allergies 02/25/20 No Physical Exam Physical Exam Constitutional: Well developed, well nourished, no acute distress, non-toxic appearance. [] HENT: Patient with an approximately 3 to 4 cm linear laceration at the crown, bleeding controlled with mild contusion. no hemotympanum Eyes: PERRLA, EOMI, conjunctiva normal, no discharge. [] Neck: Normal range of motion, mild cervical paraspinal tenderness, no midline tenderness or deformities, supple, no stridor. [] Cardiovascular:] Lungs & Thorax: Bilateral breath sounds clear to auscultation [] Abdomen: Bowel sounds normal, soft, no tenderness, no masses, no pulsatile masses. [] Skin: Warm, dry, no erythema, no rash. [] Back: Midline and paraspinal muscle lumbar tenderness, sacral tenderness Extremities: Left hip pain on palpation and range of motion that radiates into left femur, no edema, neurovascular exam intact. [] Neurologic: Alert and oriented X 3, normal motor function, normal sensory function, no focal deficits noted. [] Psychologic: Affect normal, judgement normal, mood normal. [] Current Patient Data Vital Signs Vital Signs Date Time Temp Pulse Resp B/P (MAP) Pulse Ox O2 Delivery O2 Flow Rate FiO2 06/03/20 20:30 98.3 76 22 134/69 (90) 94 Room Air EKG EKG Rate of 79, regular, QRS of 140, QTc of 464, left bundle branch morphology, no STEMI. [] Radiology/Procedures Radiology/Procedures []IMPRESSION: 1. Mildly comminuted displaced fracture involving the right pubic symphysis and minimally displaced fracture involving the right inferior pubic ramus. 2. Minimally displaced fracture involving the anterior left acetabulum and left inferior pubic rami. 3. Negative CT lumbar spine for acute medical injury. Exposure: One or more of the following in the visualized dose reduction techniques were utilized for this examination: 1. Automated exposure control 2. Adjustment of the MA and/or KV according to patient size 3. Use of iterative of reconstructive technique MPRESSION: 1. Mild extra cranial soft tissue scalp contusion overlying the vertex without underlying osseous abnormality. 2. Negative CT C-spine for acute traumatic injury. IMPRESSION: Known left acetabular fracture not well seen. No fracture identified at the left femur. Heart Score Risk Factors: Risk Factors: DM, Current or recent (<one month) smoker, HTN, HLP, family history of CAD, obesity. Risk Scores: Risk Factors: DM, Current or recent (<one month) smoker, HTN, HLP, family history of CAD, obesity. Course & Med Decision Making Course & Med Decision Making Patient is a 89-year-old male who presents after a fall with head laceration, low back, hip and left lower extremity pain Vital signs not concerning. Physical exam noted above. EKG with left bundle b ranch morphology. No STEMI. Patient placed on the monitor with IV access established. Patient given morphine for pain. Laboratory analysis notable for mildly elevated creatinine. Imaging notable for multiple fractures of the pelvis and left acetabulum. Discussed all findings with patient and family and admission to the hospital for orthopedic evaluation. Family stated they would like to go to [facility]. Discussed patient with [facility] transfer line who felt patient would be appropriate for admission and accepted patient. Stated the patient should go to [facility] on the [place] given extent of injury. Discussed this with family who verbalized understanding and agreed with plan of transfer. Dragon Disclaimer Dragon Disclaimer This electronic medical record was generated, in whole or in part, using a voice recognition dictation system. Departure Departure: Impression: Primary Impression: Acetabular fracture Additional Impression: Pelvis fracture Disposition: 02 DC/TRF OTHER SHORT TERM HOS Condition: STABLE Referrals: GEN SAGE MD (PCP) Problem Qualifiers EPIFANIO JOAQUIN MD Jun 03, 2020 21:10
[2020-06-03] MEDS ORDERED: LIDOCAINE/EPI/TETRACAINE TOPICAL GEL 3 ML. TP ONE (21:15)
--- NOTE | 2020-06-03 21:40 | RAD ---
Exam: CT head and cervical spine INDICATION: Fall, hit posterior head TECHNIQUE: Sequential axial images through the head and cervical spine were obtained without the admi nistration of IV contrast. Comparisons: None FINDINGS: Head: No focal parenchymal lesion or hemorrhage is identified. There is no midline shift or sulcal effaceme nt. Patchy hypodensity in the periventricular white matter. No acute vascular territory infarction is walt ntified. Kellogg-white distinction is preserved. The ventricular system is within normal limits without compression hydrocephalus. The basal cisterns are well maintained. Mild extra cranial soft tissue scalp contusion overlying the vertex. The visualized portions of the p aranasal sinuses and mastoid air cells are well-pneumatized. No acute fractures. Cervical spine: Reversal of normal cervical lordosis which may be positional. Vertebral body heights are well-maintai janie. Fracture to the cervical spine is not identified. Multilevel spondylotic change in cervical spine with degenerative disc disease greatest at C5-C6 and C6-C7. Mild bilateral facet arthropathy is also noted. Visualized paraspinal soft tissues are unremarkable. IMPRESSION: 1. Mild extra cranial soft tissue scalp contusion overlying the vertex without underlying osseous ab normality. 2. Negative CT C-spine for acute traumatic injury. Exposure: One or more of the following in the visualized dose reduction techniques were utilized for this examination: 1. Automated exposure control 2. Adjustment of the MA and/or KV according to patient size Use of iterative of reconstructive technique Electronically signed by: Arnulfo Castro MD (06/03/2020 9:37 PM) [facility]
--- NOTE | 2020-06-03 21:44 | RAD ---
Exam: CT of lumbar spine and pelvis without contrast INDICATION: Fall, lower back pain TECHNIQUE: Sequential axial images through the lumbar spine and pelvis obtained without IV contrast. Sagittal and coronal reformatted images were reconstructed from the axial data and reviewed. Comparisons: None FINDINGS: Lumbar spine: Vertebral body heights are well-maintained. There is a dextroconvex curvature of the lumbar spine. Fracture to the cervical spine is not identified. 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 Mild bilateral facet arthropathy is also noted in the lumbar spine. Visualized paraspinal soft tissues are unremarkable. Pelvis: Diverticulosis at the sigmoid colon without evidence of acute diverticulitis. Small amount of hemorrh agic products noted within the extraperitoneal space anterior to the bladder on the right. There is a comminuted fracture involving the right pubic symphysis. Mildly displaced fracture involvi ng the inferior right pubic rami. There is a mildly displaced fracture of the left inferior pubic rami. Minimally is placed fracture in volving the anterior left acetabulum is also noted. Visual soft tissues of the lower extremity bilaterally are unremarkable. IMPRESSION: 1. Mildly comminuted displaced fracture involving the right pubic symphysis and minimally displaced fracture involving the right inferior pubic ramus. 2. Minimally displaced fracture involving the anterior left acetabulum and left inferior pubic rami. 3. Negative CT lumbar spine for acute medical injury. Exposure: One or more of the following in the visualized dose reduction techniques were utilized for this examination: 1. Automated exposure control 2. Adjustment of the MA and/or KV according to patient size 3. Use of iterative of reconstructive technique Electronically signed by: Arnulfo Castro MD (06/03/2020 9:42 PM) [facility]
--- NOTE | 2020-06-03 21:46 | RAD ---
Exam: Left femur 2 views INDICATION: Fall TECHNIQUE: Frontal and lateral views the left femur Comparisons: None FINDINGS: Known fracture involving the left acetabulum is not well illustrated on radiograph. Other fractures a re seen. Bone mineralization is normal. Left knee has glass changes are noted. Soft tissues are unrem arkable. IMPRESSION: Known left acetabular fracture not well seen. No fracture identified at the left femur. Electronically signed by: Arnulfo Castro MD (06/03/2020 9:44 PM) [facility]
[2020-06-03 22:26] VITALS: BP 141/58
[2020-06-03] MEDS ORDERED: MORPHINE SULFATE 4 MG/ML DISP.SYRIN. IV ONE ×2 (22:30→23:45)
[2020-06-03] MEDS ORDERED: IV RINGERS SOLUTION,LACTATED 1,000 ML IV ONE (23:45)
[2020-06-04 00:16] LABS: BILIRUBIN,URINE NEG (NEG); CLARITY,URINE CLEAR; COLOR,URINE STRAW; GLUCOSE,URINE NEG (NEG); NITRITE,URINE NEG (NEG); UROBILINOGEN,URINE 0.2 mg/dL (0.2 mg/dL)
[2020-06-04 00:17] LABS: BACTERIA,URINE FEW /HPF (0-FEW); SQUAMOUS EPITHELIAL CELL,UR FEW /LPF; WBC,URINE 0 /HPF (0-4)
--- NOTE | 2020-06-04 04:24 | EKG ---
[address] [address] Test Date: 2020-06-03 Test Time: 20:41:22 Pat Name: NIRALI BELTRE Department: Room: Gender: M Mortgage Clerk: : 1930 Requested By: EPIFANIO JOAQUIN Order Number: [id number] Reading MD: Price Carnes Measurements Intervals [place] Rate: 84 P: 66 VT: 168 QRS: 27 QRSD: 140 T: 165 QT: 394 QTc: 469 Interpretive Statements SINUS RHYTHM LEFT BUNDLE BRANCH BLOCK ABNORMAL ECG Electronically Signed On 06-06-2020 10:33:52 PATIENT SERVICES COORDINATOR by Price Carnes
--- NOTE | 2020-06-04 09:01 | EKG ---
[address] [address] Test Date: 2020-06-03 Test Time: 20:49:35 Pat Name: NIRALI BELTRE Department: Room: Gender: M Psychologist: : 1930 Requested By: EPIFANIO JOAQUIN Order Number: [id number] Reading MD: Price Carnes Measurements Intervals [place] Rate: 79 P: 0 MS: 168 QRS: 28 QRSD: 140 T: 172 QT: 404 QTc: 464 Interpretive Statements SINUS RHYTHM LEFT BUNDLE BRANCH BLOCK ABNORMAL ECG Electronically Signed On 06-06-2020 10:33:58 SHADOWGRAPH OPERATOR by Price Carnes
== END 2020-06-04 00:45 | disposition short-term general hospital (02) ==
LOC: ER 20:21
DX: S32.492A Other specified fracture of left acetabulum, initial encounter for closed fracture (principal); S32.9XXA Fracture of unspecified parts of lumbosacral spine and pelvis, initial encounter for closed fracture; E78.00 Pure hypercholesterolemia, unspecified; I25.10 Atherosclerotic heart disease of native coronary artery without angina pectoris; W10.8XXA Fall (on) (from) other stairs and steps, initial encounter; Y93.89 Activity, other specified; Y92.89 Other specified places as the place of occurrence of the external cause; Y99.8 Other external cause status
CPT/HCPCS: 36415; 70450; 72125; 72131; 72192; 73552; 80048; 81001; 84484; 85025; 93005; 96361; 96374; 96376; 99285; J2270; J7120

== ENCOUNTER → 2020-10-29 | Outpatient (CLI) | payer MEDICARE ==
--- NOTE | 2020-10-29 13:13 | RAD ---
CT lumbar spine without contrast dated 10/29/2020. COMPARISON: 06/03/2020 Clinical indication: Pain. TECHNIQUE: Per contiguous axial imaging of the lumbar spine performed with thin cut coronal and sagit davon reconstruction. One or more of the following individualized dose reduction techniques were utilized for this examinat ion: 1. Automated exposure control 2. Adjustment of the mA and/or kV according to patient size 3. Use of iterative reconstruction technique. FINDINGS: Slight retrolisthesis of L1 on L2. Sagittal alignment is otherwise anatomic. Slight superior endplate depression of the L3 vertebral body is unchanged from prior study. Vertebral body heights are otherw ise maintained. Posterior elements are intact. No evidence of fracture. Moderate endplate hypertrophic changes throughout with multilevel disc space narrowing and vacuum dis c phenomenon. Moderate lower lumbar facet arthropathy. Resultant mild central canal narrowing at L1-L 2, L2-L3, L3-L4 and L4-L5. There is mild to moderate foraminal narrowing. Images of lung bases show some linear scar or atelectasis or mild fibrosis of the lower lobes, unchan ged. Kidneys are somewhat atrophic. Abdominal aorta is normal in caliber. Scattered diverticula withi n the distal colon. There is moderate stool throughout the colon. Bilateral sacral insufficiency frac tures, new from prior study. There is some sclerotic changes suggesting these are subacute. IMPRESSION: 1. Bilateral sacral insufficiency fractures, new from prior study. 2. Remote wedge compression deformity of L3, unchanged. 3. Moderate multilevel lumbar spondylosis, stable. Electronically signed by: Matty Barahona MD (10/29/2020 1:10 PM) [id number]
[2020-10-29 14:33] LABS: BASO # 0.1 x10^3/uL (0.0-0.2); BASO % 1 % (0-3); EOS # 0.1 x10^3/uL (0.0-0.7); EOS % 2 % (0-3); HEMATOCRIT 36.8 % (39.0-53.0); HEMOGLOBIN 12.3 g/dL (13.0-17.5); LYMPH # 1.7 x10^3/uL (1.0-4.8); LYMPH % 22 % (24-48); MEAN CORPUSCULAR HEMOGLOBIN 32 pg (25-35); MEAN CORPUSCULAR HGB CONC 33 g/dL (31-37); MEAN CORPUSCULAR VOLUME 95 fL (79-100); MONO # 0.8 x10^3/uL (0.0-1.1); MONO % 10 % (0-9); NEUT # 5.4 x10^3uL (1.8-7.7); NEUT % 66 % (31-73); PLATELET COUNT 229 x10^3/uL (140-400); RED BLOOD COUNT 3.86 x10^6/uL (4.30-5.70); RED CELL DISTRIBUTION WIDTH 14.8 % (11.5-14.5); WHITE BLOOD COUNT 8.1 x10^3/uL (4.0-11.0)
[2020-10-29 14:48] LABS: ALBUMIN 4.1 g/dL (3.4-5.0); C REACTIVE PROTEIN 3.8 mg/L (0-3.3); CALCIUM 9.8 mg/dL (8.5-10.1); CREATININE 1.7 mg/dL (0.7-1.3); GFR 38.2; POTASSIUM 4.8 mmol/L (3.5-5.1); TOTAL BILIRUBIN 0.5 mg/dL (0.2-1.0); TOTAL PROTEIN 8.3 g/dL (6.4-8.2)
== END ==
LOC: LAB 12:12
PROVIDERS: ATTEND Family Medicine
DX: M47.816 Spondylosis without myelopathy or radiculopathy, lumbar region (principal); M48.061 Spinal stenosis, lumbar region without neurogenic claudication; M84.48XA Pathological fracture, other site, initial encounter for fracture; E61.1 Iron deficiency; N40.0 Benign prostatic hyperplasia without lower urinary tract symptoms; I10 Essential (primary) hypertension; M43.8X6 Other specified deforming dorsopathies, lumbar region
CPT/HCPCS: 36415; 72131; 80053; 85025; 86140